=== PATIENT | female | born 1955 | race Caucasian/White ===

== ENCOUNTER 2019-12-09 01:22 | Emergency (ER) | payer OTHER ==
[~2019-12-09] VITALS: Ht 160 cm; Wt 55.0 kg
[2019-12-09 01:29] VITALS: BP 134/81
[2019-12-09] MEDS ORDERED: LIDOCAINE 1%, 2ML INFIL ONE (02:00)
[2019-12-09] MEDS ORDERED: LIDOCAINE-MPF 1%, 5ML ONE (02:06)
== END 2019-12-09 03:30 ==
LOC: ED 01:31
DX: S52.502A Unspecified fracture of the lower end of left radius, initial encounter for closed fracture (principal); F17.210 Nicotine dependence, cigarettes, uncomplicated; W19.XXXA Unspecified fall, initial encounter; Y93.89 Activity, other specified; Y92.098 Other place in other non-institutional residence as the place of occurrence of the external cause; Y99.8 Other external cause status
CPT/HCPCS: 25605; 99284